=== PATIENT | female | born 1985 | race African-American/Black ===

== ENCOUNTER 2017-07-21 11:11 | Emergency (ER) | payer SELFPAY ==
[~2017-07-21] VITALS: Ht 165.1 cm; Wt 72.7 kg
[~2017-07-21 11:11] MED LIST: AMOXICILLIN 50500 MG PO; AMOXICILLIN 8751 TAB PO; CEPHALEXIN500 M1 PO; CLINDAMYCIN HC150 MG PO; CLINDAMYCIN300 MG PO; DEPO PROVER150 MG/ML IM; LORTAB 5/500 501 TAB PO; MOTRIN 800800 MG/TAB PO; MULTI VITAMINS1 TAB PO; MULTIPLE VITAMI1 CAP; NAPROSYN500 MG PO; NO HOME MEDICATIONS; NORCO 325 MG-51 TAB PO; PHENERGAN 25 TA25 MG PO; PHENERMINE; TYLENOL COLD &1 PDR PO
[2017-07-21 11:18] VITALS: BP 155/87; TEMP 98.7
[2017-07-21] MEDS ORDERED: FLEXERIL 1010 MG/TAB PO (13:38)
[2017-07-21] MEDS ORDERED: NORCO 325 MG-51 TAB PO (13:38)
[2017-07-21 13:48] VITALS: PULSE 94
== END 2017-07-21 13:48 | disposition home or self-care (01) ==
LOC: COL.ER 11:11
DX: M54.42 Lumbago with sciatica, left side (principal); W09.8XXA Fall on or from other playground equipment, initial encounter
CPT/HCPCS: J1885; J2360

== ENCOUNTER 2017-11-11 00:09 | Emergency (ER) | payer SELFPAY ==
[~2017-11-11] VITALS: Ht 165.1 cm; Wt 76.4 kg
[~2017-11-11 00:09] MED LIST changes: +FLEXERIL 1010 MG/TAB PO
[2017-11-11 00:12] VITALS: BP 132/80; TEMP 99.6
[2017-11-11 01:22] LABS: INFLUENZA A NEGATIVE; INFLUENZA B NEGATIVE
[2017-11-11] MEDS ORDERED: ZITHROMAX500 M2 PO (01:34)
[2017-11-11] MEDS ORDERED: TESSALON PERLE200 MG PO (01:34)
[2017-11-11 02:27] VITALS: PULSE 87
== END 2017-11-11 02:27 | disposition home or self-care (01) ==
LOC: COL.ER 00:09
PROVIDERS: Emergency Medicine
DX: J20.9 Acute bronchitis, unspecified (principal); B34.9 Viral infection, unspecified; F17.210 Nicotine dependence, cigarettes, uncomplicated
CPT/HCPCS: J1200; J1885; J7040

== ENCOUNTER 2018-05-25 10:24 | Emergency (ER) | payer SELFPAY ==
[~2018-05-25] VITALS: Ht 165.1 cm; Wt 80.5 kg
[~2018-05-25 10:24] MED LIST changes: +TESSALON PERLE200 MG PO; +ZITHROMAX500 M2 PO
[2018-05-25 10:27] VITALS: BP 121/69; TEMP 98
[2018-05-25 10:46] VITALS: PULSE 92
[2018-05-25] MEDS ORDERED: CLEOCIN HCL300 MG PO (10:49)
== END 2018-05-25 10:53 | disposition home or self-care (01) ==
LOC: COL.ER 10:24
DX: K08.89 Other specified disorders of teeth and supporting structures (principal); R68.84 Jaw pain

== ENCOUNTER 2018-08-03 15:36 | Emergency (ER) | payer OTHER ==
[~2018-08-03] VITALS: Ht 165.1 cm; Wt 80.9 kg
[~2018-08-03 15:36] MED LIST changes: +CLEOCIN HCL300 MG PO
[2018-08-03 15:44] VITALS: BP 132/86; PULSE 90; TEMP 98.5
[2018-08-03] MEDS ORDERED: CELEXA 20MG20 MG/TAB PO (15:48)
== END 2018-08-03 17:27 | disposition home or self-care (01) ==
LOC: COL.ER 15:36
DX: S13.4XXA Sprain of ligaments of cervical spine, initial encounter (principal); R07.89 Other chest pain; F32.9 Major depressive disorder, single episode, unspecified; F17.210 Nicotine dependence, cigarettes, uncomplicated; V49.40XA Driver injured in collision with unspecified motor vehicles in traffic accident, initial encounter

== ENCOUNTER 2019-08-02 11:41 | Emergency (ER) | payer SELFPAY ==
[~2019-08-02] VITALS: Ht 165.1 cm; Wt 68.2 kg
[~2019-08-02 11:41] MED LIST changes: +CELEXA 20MG20 MG/TAB PO
[2019-08-02 15:07] LABS: COLLECTION METHOD CLEAN CATCH
[2019-08-02 15:12] LABS: MUCOUS Present /lpf; PH 6 (5-8); SQUAMOUS EPITHELIAL None Seen /hpf; URINE APPEARANCE Clear; URINE BACTERIA Rare /hpf; URINE BILIRUBIN Negative (NEGATIVE); URINE BLOOD Negative (NEGATIVE); URINE COLOR Straw; URINE GLUCOSE Negative (NEGATIVE); URINE KETONE Negative (NEGATIVE); URINE LEUKOCYTE ESTERASE Negative (NEGATIVE); URINE NITRATE Negative (NEGATIVE); URINE PROTEIN(semi-quant) Negative (NEGATIVE); URINE RBC 0-2 /hpf; URINE UROBILINOGEN Negative (NEGATIVE)
[2019-08-02 15:32] VITALS: BP 115/62
[2019-08-02] MEDS ORDERED: PREDNISONE20 MG PO (15:38)
[2019-08-02] MEDS ORDERED: PROAIR HFA0.09 MG/AC IH (15:39)
[2019-08-02] MEDS ORDERED: CHERATUSSIN AC120 ML PO (15:55)
[2019-08-02 16:20] VITALS: PULSE 79; TEMP 98.4
== END 2019-08-02 16:25 | disposition home or self-care (01) ==
LOC: COL.ER 11:41
PROVIDERS: Physician Assistant
DX: J20.9 Acute bronchitis, unspecified (principal); I10 Essential (primary) hypertension; Z98.890 Other specified postprocedural states; Z87.891 Personal history of nicotine dependence
CPT/HCPCS: J1885; J3475; J7030

== ENCOUNTER 2019-08-04 11:51 | Emergency (ER) | payer SELFPAY ==
[~2019-08-04] VITALS: Ht 165.1 cm; Wt 68.2 kg
[~2019-08-04 11:51] MED LIST changes: +CHERATUSSIN AC120 ML PO; +PREDNISONE20 MG PO; +PROAIR HFA0.09 MG/AC IH
[2019-08-04 12:06] VITALS: BP 135/76
[2019-08-04] MEDS ORDERED: NORCO 325 MG-51 TAB PO (12:46)
[2019-08-04] MEDS ORDERED: CLEOCIN HCL300 MG PO (12:46)
[2019-08-04 12:55] VITALS: PULSE 84; TEMP 98.6
== END 2019-08-04 13:00 | disposition home or self-care (01) ==
LOC: COL.ER 11:51
DX: K12.2 Cellulitis and abscess of mouth (principal); F17.210 Nicotine dependence, cigarettes, uncomplicated

== ENCOUNTER 2019-11-13 11:09 | Emergency (ER) | payer SELFPAY ==
[~2019-11-13] VITALS: Ht 165.1 cm; Wt 70.0 kg
[2019-11-13 11:19] VITALS: BP 125/75; TEMP 98.8
[2019-11-13] MEDS ORDERED: AMOXICILLIN 50500 MG PO (14:24)
[2019-11-13 14:37] VITALS: PULSE 92
[2019-11-13] MEDS ORDERED: NORCO 325 MG-51 TAB PO (14:39)
== END 2019-11-13 14:37 | disposition home or self-care (01) ==
LOC: COL.ER 11:09
DX: K02.9 Dental caries, unspecified (principal)

== ENCOUNTER 2021-01-03 15:15 | Emergency (ER) | payer SELFPAY ==
[~2021-01-03] VITALS: Ht 162.6 cm; Wt 65.9 kg
[2021-01-03 17:21] VITALS: BP 127/85; PULSE 78; TEMP 98.1
[2021-01-03 17:23] LABS: STREP SCREEN NEGATIVE
== END 2021-01-03 17:24 | disposition home or self-care (01) ==
LOC: COL.ER 15:15
PROVIDERS: Nurse Practitioner
DX: J02.9 Acute pharyngitis, unspecified (principal); Z87.891 Personal history of nicotine dependence; Z88.4 Allergy status to anesthetic agent; Z79.51 Long term (current) use of inhaled steroids

== ENCOUNTER 2021-03-20 09:25 | Emergency (ER) | payer SELFPAY ==
[~2021-03-20] VITALS: Ht 167.6 cm; Wt 63.6 kg
[2021-03-20 09:33] VITALS: BP 144/68; PULSE 132
--- NOTE | 2021-03-20 11:23 | NUR ---
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 Per ED notes, patient was found unresponsive in her car in hosptial parking lot and drug paraphernalia was observed in patient's wallet during registration. Patient had an improvement in mental status once give IV narcan, then left AMA. Patient was advised not to drive or operate machinery, however patient was observed driving herself out of the ED parking lot. Jesusita advised [facility] was contacted and notifed a patient (no name or identifying information given) left and was driving against medical advice. SW made a report to both Child Protective Services (intake #[id number]) and Adult Protective Services (intake# [id number]).
== END 2021-03-20 09:50 | disposition left against medical advice (07) ==
LOC: COL.ER 09:25
DX: R41.82 Altered mental status, unspecified (principal); R00.0 Tachycardia, unspecified; Z88.6 Allergy status to analgesic agent
CPT/HCPCS: J2310

== ENCOUNTER 2021-11-20 14:20 | Emergency (ER) | payer MEDICAID ==
[~2021-11-20] VITALS: Ht 165.1 cm; Wt 70.0 kg
[2021-11-20] MEDS ORDERED: NORCO 325 MG-51 TAB PO (15:06)
[2021-11-20] MEDS ORDERED: AMOXICILLIN 50500 MG PO (15:06)
[2021-11-20 15:22] VITALS: BP 128/91; PULSE 86
== END 2021-11-20 15:22 | disposition home or self-care (01) ==
LOC: COL.ER 14:20
DX: K08.89 Other specified disorders of teeth and supporting structures (principal)

== ENCOUNTER → 2022-04-10 | Outpatient (CLI) | payer MEDICAID ==
[2022-04-10 12:58] LABS: HEMATOCRIT 41.2 % (37.0-47.0); MEAN CELL VOLUME 93 fl (80.0-100.0); MEAN CORPUSCULAR HEMOGLOBIN 32 pg (27-31); MEAN CORPUSCULAR HGB CONC 34 g/dl (33.0-37.0); MEAN PLATELET VOLUME 10.7 fl (7.4-10.4); PLATELET COUNT 289 K/mm3 (130-400); RED BLOOD COUNT 4.45 M/mm3 (4.10-5.30); REDCELL DISTRIBUTION WIDTH-CV 13.4 % (11.5-14.5)
[2022-04-10 13:11] LABS: BILIRUBIN,TOTAL 0.4 mg/dL (0.2-1.2); CALCIUM 9.4 mg/dL (8.4-10.2); CREATININE, serum 0.77 mg/dL (0.57-1.11); POTASSIUM 4.4 mmol/L (3.5-4.5); TOTAL PROTEIN 7.9 gm/dL (6.2-8.1)
[2022-04-10 13:47] LABS: EOSINOPHIL 3 % (0-4); LYMPHOCYTE 36 % (20.0-51.0); NEUTROPHILS 53 % (42.0-75.2); PLATELET ESTIMATE NORMAL (NORMAL)
[2022-04-10 14:01] LABS: HIV 1/2 Antibodies Non-Reactive; HIV-1p24 Antigen Non-Reactive
[2022-04-11 00:50] LABS: HEPATITIS B SURFACE ANTIBODY 3.6 (()); HEPATITIS C VIRUS ANTIBODY Negative (Negative)
== END ==
LOC: COL.LAB 12:28
PROVIDERS: Registered Nurse
DX: Z13.9 Encounter for screening, unspecified (principal); F11.13 Opioid abuse with withdrawal